=== PATIENT | female | born 1965 | race Caucasian/White ===

== ENCOUNTER 2025-02-26 04:08 | Emergency (ER) | payer OTHER, SELFPAY ==
[2025-02-26 04:14] VITALS: BP 183/116; PULSE 99; RESP 16; TEMP 36.1; O2SAT 96; BMI 39.9
[2025-02-26 04:23] VITALS: BP 162/96; PULSE 90; O2SAT 93
--- NOTE | 2025-02-26 04:52 | ED.GENADULT ---
HPI - General Adult General Chief complaint: Arrhythmia/Palpitations Stated complaint: heart palpitations Time Seen by Provider: 02/26/25 04:25 Source: patient Mode of arrival: ambulatory Limitations: no limitations History of Present Illness HPI narrative: 60-year-old female presents to the emergency department for evaluation of heart fluttering. Symptomatic for 12 hours at the time of arrival in the wee hours of the morning. Denies alcohol or caffeine ingestion. Denies a history of sleep apnea but does admit that she is being worked up for this. No fever, no signs of recent illness. No chest pain. Feels like her breath kind of catches but is not really short of breath. No cough. No nausea or vomiting, no GI changes. No injury or trauma. Not accompanied by dizziness, neurological changes or other systemic symptoms. Has not tried any treatments to help with symptoms. Has had a few of these flutters in the past but has never lasted this long. No prior workup for these in the past. No prior echo, stress test, Holter monitor, etc.. Does not have a history of thyroid disease. Does have a history of depression, uses bupropion 300 mg extended release once daily and a vaginal estrogen supplement. No history of bleeding or blood clotting disorders, DVT or PE. Symptoms are not worse on exertion. Nonsmoker. Denies drug allergies. ROS notable for the cardiac symptoms as above only, otherwise denies times 12 systems. Related Data Home Medications ?Medication ?Instructions ?Recorded ?Confirmed bupropion HCl 300 mg 24 hr tablet, 300 mg PO DAILY 02/26/25 02/26/25 extended release (Wellbutrin XL) estradiol 0.01% (0.1 mg/gram) 1 g vaginal DAILY 02/26/25 02/26/25 vaginal cream Allergies Allergy/AdvReac Type Severity Reaction Status Date / Time No Known Drug Allergies Allergy Verified 02/26/25 04:17 [facility] Social History Smoking Status: Never smoker Do you use any of these nicotine containing products: None How often do you have a drink containing alcohol: never AUDIT-C Alcohol total score: 0 Non-prescribed substance use: denies use Exam Const: Vital Signs, click to edit/add: Vital Signs - 24 hr 02/26/25 04:14 02/26/25 04:23 Temperature 97.0 F L Pulse Rate [Pulse Oximeter] 99 90 Respiratory Rate 16 Blood Pressure [Ri ght Upper Arm] 183/116 H 162/96 H Pulse Oximetry 96 93 Oxygen Delivery Me thod Room Air Room Air Documenting provider has reviewed patient's vital signs: yes Common normals: alert General appearance: cooperative HENMT: Common normals: normocephalic, moist oral mucous membranes and oropharynx normal Head and scalp: normocephalic Eye: Common normals: conjunctivae normal General eye: normal appearance of both eyes Conjunctiva: conjunctiva(e) normal Neck & C-Spine: Common normals: full ROM and no lymphadenopathy General: normal visual inspection Resp: Common normals: normal respiratory effort, no use of accessory muscles and clear to auscultation bilaterally Effort & inspection: able to speak in complete sentences Auscultation: clear to auscultation bilaterally Cardio: Common normals: regular rate, regular rhythm, S1 normal heart sound, S2 normal heart sound and no murmurs Rate: regular rate Rhythm: regular rhythm Heart sounds: S1 normal and S2 normal GI: Common normals: Normal to inspection, nondistended, normoactive bowel sounds present, soft to palpation, non-tender, no hepatosplenomegaly and no masses Palpation: soft and no hepatosplenomegaly Extremity: Common normals: normal to inspection, normal capillary refill and no pedal edema Neuro: Common normals: moves all extremities Sensorium/orientation: alert Speech: speech normal Motor exam: strength 5/5 throughout Psych: Attitude: engaged Activity/motor behavior: appropriate eye contact Attention/concentration: attention grossly intact Insight: insight good Judgement: judgment good Skin: Common normals: no rashes or lesions noted General skin exam: no rashes or lesions noted Course Course ED Course: 60-year-old female with feeling of heart fluttering. Rhythm strip reviewed in the room and she is having PVC every 10-15 seconds or so. EKG is performed and appears similar. Counseled patient that this is likely the etiology of her symptoms but sometimes there can be an underlying medical etiology such is electrolyte abnormality, dehydration, infection or thyroid disease. Recommended a basic cardiac workup, electrolytes and thyroid test today. Will keep on library monitor to see if there is a more dangerous underlying rhythm. I did show her on her Apple watch how to monitor her heart rate and rhythm. It is a newer generation 1 that has an arrhythmia detector. It does not show any signs of recent arrhythmia. Will await findings but anticipate discharge home with continued primary care workup. Reevaluation(s) Time of Reevaluation #1: 05:54 Reevaluation #1: Updated patient on findings, all labs are normal as expected. The PVCs have kind of faded out as well and she is no longer really symptomatic. Counseled patient on etiology, plan of care recommend conservative management reassurance. Follow-up with primary care doctor in 1-2 weeks for additional outpatient testing if still symptomatic. Alarm symptoms reviewed, written instructions provided Vital Signs Vital signs: Initial Vital Signs Temperature 97.0 F L 02/26/25 04:14 Temperature Source Temporal Artery Scan 02/26/25 04:14 Pulse Rate 99 02/26/25 04:14 Respiratory Rate 16 02/26/25 04:14 Blood Pressure 183/116 H 02/26/25 04:14 Blood Pressure Mean 138 H 02/26/25 04:14 Blood Pressure Position Sitting 02/26/25 04:14 Pulse Oximetry 96 02/26/25 04:14 Oxygen Delivery Method Room Air 02/26/25 04:14 Vital Signs Temperature 97.0 F L 02/26/25 04:14 Pulse Rate 99 02/26/25 04:14 Respiratory Rate 16 02/26/25 04:14 Blood Pressure 183/116 H 02/26/25 04:14 Pulse Oximetry 96 02/26/25 04:14 Oxygen Delivery Method Room Air 02/26/25 04:14 Temperature 97.0 F L 02/26/25 04:14 Pulse Rate 90 02/26/25 04:23 Respiratory Rate 16 02/26/25 04:14 Blood Pressure 162/96 H 02/26/25 04:23 Pulse Oximetry 93 02/26/25 04:23 Oxygen Delivery Method Room Air 02/26/25 04:23 Medical Decision Making Lab Data Lab results reviewed: Yes I reviewed the patient's lab results Lab results narrative: Labs reassuring. No abnormalities Labs: Lab Results 02/26/25 Range/Units 04:50 WBC 8.15 (4.50-11.00) K/uL RBC 5.24 H (4.00-5.20) m/uL Hgb 14.1 (12.0-16.0) gm/dL Hct 43.8 (33.0-51.0) % MCV 84 (80-100) fL MCH 27 (26-34) pg MCHC 32 (32-36) gm/dL RDW Coeff of Curt 13.4 (11.5-15.5) % Plt Count 279 (140-440) K/uL Neut % (Auto) 69.9 (42.0-72.0) % Lymph % (Auto) 20.5 (20-44) % Moody % (Auto) 6.5 (0.0-11.0) % Eos % (Auto) 2.0 (0.0-7.0) % Baso % (Auto) 0.6 (0.0-3.0) % Neut # (Auto) 5.70 (1.7-7.0) K/uL Lymph # (Auto) 1.67 (0.90-2.90) K/uL Moody # (Auto) 0.50 (0.00-0.90) K/UL Eos # (Auto) 0.16 (0.00-0.50) K/uL Baso # (Auto) 0.05 (0.00-0.30) K/uL Abs Immat Gran (auto) 0.04 (0.00-0.30) K/uL Imm/Tot Granulo (auto) 0.5 % Sodium 138 (135-149) mmol/L Potassium 3.8 (3.6-5.1) mmol/L Chloride 101 (96-114) mmol/L Carbon Dioxide 29 (20-32) mmol/L Anion Gap 8 (7-15) mEq/L BUN 17 (7-30) mg/dL Creatinine 0.9 (0.5-1.5) mg/dL Estimated Creat Clear 60.56 Estimated GFR 74 ml/min Glucose 127 H (60-115) mg/dL Calcium 9.1 (8.4-10.6) mg/dL Troponin I < 0.01 (0.01-0.04) ng/mL POC Troponin I High Sensi 5.2 (2.9-13.0) pg/mL C-Reactive Protein 1.0 (0.5-1.0) mg/dL NT-Pro-B Natriuret Pep < 20 (See Note) pg/mL TSH 3.740 (0.270-4.200) uIU/mL ECG Data Attestation: I personally reviewed and interpreted this ECG as follows: Prior ECG tracings: not available for review Interpretation: Sinus rhythm with a rate of 91. Few PVCs are present but otherwise EKG looks normal. Intervals and axis otherwise normal. No significant ST or T-wave abnormalities. Benign EKG Discharge Plan Discharge Clinical Impression: Symptomatic PVCs Instructions: Premature Ventricular Contractions (ED) Additional Instructions: As we discussed, the fluttering feelings that you're having are caused by PVCs, also known as premature ventricular contractions. These are very common. One in 6 people get them frequently. It is common that they will come in episodes that last for a few hours or even up to a few days. Some people do have thousands of these daily. It is not associated with underlying significant structural disease but can sometimes be correlated with caffeine or alcohol or obstructive sleep apnea. Sometimes periods of increased stress or poor sleep can bring these on. At this time, no treatment is needed but if you are very bothered by your symptoms, you on your primary care doctor can discuss medication like propranolol for them. This will lower your blood pressure but may cause some fatigue so it should be considered carefully. Additional workup like a Holter monitor, echo or other cardiac workup can be considered if you are having worsening of symptoms, dizziness, chest pain, true shortness of breath or worsening on exertion. Would recommend that you make a follow-up appointment with your primary care doctor in 1-2 weeks to discuss her symptoms and decide if further workup is warranted. Thankfully, there were no signs of electrolyte abnormality, thyroid disease or other abnormality here today. Sometimes Wellbutrin can make these worse but is not typically dangerous, continuing on it is usually best. Activity Level: No Restrictions Discharge Diet: Regular Prescriptions: No Action bupropion HCl [Wellbutrin XL] 300 mg tablet extended release 24 hr 300 mg PO DAILY estradiol 0.01 % (0.1 mg/gram) cream 1 g vaginal DAILY Rx Instructions: for 14 days Follow Up/Referrals: Provider,Not a Local [Primary Care Provider, Family Practice]
--- OUTSIDE RECORDS SUMMARY | 2025-02-26 04:57 | XMS_ITS | Clinical Summary ---
Author Organization [facility] Address [address] [place] [address] Care Team Providers Care Salesperson Flowers Name Role Phone Shaunna Thomas MD Primary Care Provider Allergies No known active allergies Medications MedicationSigDispense QuantityRefillsLast FilledStart DateEnd DateStatus COVID-19 antigen test (Flowflex COVID-19 Ag Home Test) kit Use as directed on packaging. 4 Kit 11/24/2023 2:01 PM CDT13Active albuterol HFA (ProAir HFA) 90 mcg/actuation inhaler Indications:Influenza-like illnessInhale 1-2 Puffs by mouth every 6 hours if needed for Shortness of Breath 1st choice. 1 Each 5Active cyclobenzaprine (FLEXERIL) 5 mg tablet Indications:Muscle spasmTake 1 Tablet (5 mg) by mouth 3 times daily if needed for Muscle Spasm. 90 Tablet 11:48 AM CDT5Active SUMAtriptan (IMITREX) 25 mg tablet Indications:Migraine without status migrainosus, not intractable, unspecified migraine typeTake 1 Tablet (25 mg) by mouth every 2 hours if needed for Migraine. 10 Tablet 5Active buPROPion (WELLBUTRIN XL) 300 mg Extended-Release tablet Indications:AnxietyTake 1 Tablet (300 mg) by mouth once daily. 90 Tablet 10:52 AM CST5Active ferrous sulfate 325 mg delayed release tablet Indications:RLS (restless legs syndrome),Iron deficiencyTake 1 Tablet (325 mg) by mouth once daily. Administer with water or juice on an empty stomach. Many take with orange juice to promote absorption. 30 Tablet 10:49 AM CST5Active meloxicam 15 mg tablet Indications:Left ankle pain, unspecified chronicity,Left tibialis posterior tendonitisTake 1 Tablet (15 mg) by mouth once daily. 30 Tablet 02/05/2025 10:49 AM CST506Active estradioL (VAGIFEM) 10 mcg tab vaginal tablet Indications:Atrophic vaginitisInsert 1 Tablet (10 mcg) into the vagina once daily for 14 days, THEN 1 Tablet (10 mcg) every Tuesday and . 28 Tablet 6:52 PM CDTExpired buPROPion (WELLBUTRIN XL) 150 mg Extended-Release tablet Indications:AnxietyTake 1 Tablet (150 mg) by mouth once daily in the morning. 90 Tablet 4:07 PM CDTDiscontinued(*Medication adjustment) Active Problems ProblemNoted DateDiagnosed WinhDgbgcyf25/10/7542Wndlzxseips17/10/2021 Qijlkaosdzirqrdulply20/11/2021creening for colon tjeldm2107/08/2020Health care arrqteclmow03/11/2021 Overview (02/13/2024): PAP- 02/2019 repeat 5 y doing with obgyn Mammogram- yearly Colonoscopy- 2016. 04/26/22, repeat in 5 y DEXA- 02/13/24 wnl repeat 5y Vaccinations-up to date Adhesive capsulitis of left fttezzjz40/29/5146Howjzxsbggl74/29/2019Vitamin D wxysuwrujt59/18/2017Migraine without status migrainosus, not intractable 09/14/2016Pap smear for cervical cancer zmbzyzeqd49/14/2006 Overview (06/13/2024): 12/03/2002 LSIL 11/2002 [place]: Cervicitis 05/11/2004 LSIL 04/13/2005 LSIL 04/13/2005 [place]: GAYLE I 09/2006 NIL/HPV Negative 04/2009 NIL 11/2011 NIL/HPV negative 02/2019 NIL/HPV Negative 04/2024 NIL/HPV negative Plan: HPV-based testing due 04/2029 Encounters DateTypeDepartmentCare JedsXcwyhsdykes84/23/2025 8:27 AM MAT MAN - 02/19/2025 11:59 PM CSTHospital Encounter [facility] Physical [facility] Doctor's Professional [facility] [address] [place] [address] Tahir Lara, Angel Botello, PT 02/19/20259012Nqdgix15/18/2025 8:20 AM MAT MAN - 02/14/2025 11:59 PM CSTHospital Encounter [facility] [address] [place] [address] Tahir Lara, Angel Botello, PT 02/14/20257326Njowhp53/11/2025 8:18 AM MAT MAN - 02/07/2025 11:59 PM CSTHospital Encounter [facility] Professional [facility] [address] [place] [address] Tahir Lara, Angel Botello, PT Left ankle pain, unspecified zswlyaspik47/11/4470Libwdp35/08/2025 3:30 PM MAT MAN Office Visit [facility] [address] [place] [address] Tahir aLra MD Ankle Pain/problem (Left ankle pain)02/04/2025 3:15 PM CSTAncillary Procedure [facility] [address] [place] [address] 02/04/20253689Nvodxc45/08/2025Results Follow-Up [facility] [address] [place] [phone] Louise Salcido NP 02/02/20255426Fcnspi07/05/2025 10:41 AM MAT MAN - 02/01/2025 11:[address] [facility] [address] [place] [address] Louise Salcido NP RLS (restless legs syndrome)02/01/20257492Qpxhpq58/03/2025 12:30 PM CSTOffice Visit [facility] [address] [place] [phone] Louise Salcido NP Sleep Consult (KRISTY)01/30/20258291Acabvm31/28/3243Rhljey00/17/2025Telephone [facility] [address] [place] [address] Consultants, Orthopedic Appointment Request (FOOT/ANKLE)12/22/2024Refill [facility] [address] [facility] [address] [place] [address] Shaunna Thomas MD Refill Request (Imitrex)from Last 3 Months Immunizations ImmunizationAdministration DatesNext DueCOVID-19 vaccine (XoomsysNTHealthify 30mcg/0.3mL) PF, MDV03/26/2020,03/05/2020Hepatitis B, Fentgcverhy32/03/2008, 10/26/2006,09/19/2006INFLUENZA, IIV3 PF (AGE >= 6 MO)12/12/2023Influenza A (H1N1), Inactivated (Age >=3 Years)12/20/2008Influenza Virus, Unspecified 12/19/2013,12/13/2012,12/17/2011,12/25/2010,02/05/2009,01/11/2008Influenza, IIV3 (Age >=3 years)11/12/2018Influenza, IGZ799/,12/09/2021,12/11/2020, 12/04/2019,12/05/2018Influenza, split (incl. purified surface antigen)12/29/2006 MMR05/05/19719482Atsyzga80/05/1967TD, PRMLWUSCFJS94/23/2007Td (Age >=7 Years) 09/19/2006Tdap04/05/2022,12/25/2010Zoster (Shingrix-RZV, recombinant)07/25/2021, 07/08/2020 Family History Medical HistoryRelationNameCommentsCancerFatherbladder. Knhi-42Ewgihi-iteydilw FatherDiabetesFatherHeart DiseaseFatherHyperlipidemiaFatherHypertensionFather Lung cancerFatherHeart DiseaseMaternal GrandmotherCancerMotherskin cancer basal cell car.Rheum arthritisMotherHeart DiseasePaternal GrandmotherHeart defect Paternal GrandmotherCancer-colonPaternal Hwioc50-9 71-2AsthmaSister Cancer-breastNo Family HistoryCancer-ovarianNo Family HistoryRelationNameStatus CommentsFatherDeceasedMaternal GrandmotherMotherPaternal GrandmotherPaternal UncleSister Social History Tobacco UseTypesPacks/DayYears UsedDateSmoking Tobacco: NeverSmokeless Tobacco: Never Comments: Alcohol UseStandard Drinks/WeekCommentsYes1 (1 standard drink = 0.6 oz pure alcohol)once monthlyPHQ-2AnswerDate RecordedPHQ-2 TOTAL IIMEM127Social ConnectionsAnswerDate RecordedDo you often feel lonely or isolated from those around you?Financial Resource StrainAnswerDate RecordedDifficulty of Paying Living Unqgkgnl530ifficulty of Paying Living ExpensesNot on file 07/17/2023Food InsecurityAnswerDate RecordedDo you worry your food will run out before you are able to buy more?Transportation NeedsAnswerDate RecordedDoes lack of transportation keep you from medical appointments?1 07/17/2023oes lack of transportation keep you from work, meetings or getting things that you need?Housing StabilityAnswerDate RecordedWhat is your housing situation today?UtilitiesAnswerDate RecordedDo you have trouble paying for utilities (for example, heat, electricity, water, phone)?1 07/17/2023EducationAnswerDate RecordedWhat is the highest level of school you have completed or the highest degree you have received?Bachelor's degree (e.g., BA, AB, BS)3CommentsNoSex and Gender InformationValueDate RecordedSex Assigned at LmszbXpsjuk03/10/2021 11:03 PM CDTLegal SexFemale 03/13/2012 6:18 AM CSTGender WryvbbkuXjtoby53/10/2021 11:03 PM CDTSexual CwgyemmgnteCztgwmhu14/10/2021 11:03 PM CDTOccupationIndustryJob Start DateJob End DateResearch nurseNot on fileNot on fileNot on file Obstetrics History GravidaParaTermPretermABIABSABEctopicMultipleLivingLive [id number] OutcomeGATotal LaborLabor/2nd/8qeVrbkeuGnrHugkXxocWPXIdtW5A4UydrNvzrOQK Last Filed Vital Signs Vital SignReadingTime TakenCommentsBlood Arutbxbw832/9009 9:16 AM CDT Wynhu267411/07/2024 9:16 AM LKAIxzxelsqyak38 ??C (100.4 ??F)03/08/2024 9:11 AM MAT MAN Respiratory Ouiw8710 7:49 PM CDTOxygen Iakiorzbft20%11/07/2024 9:16 AM CDTInhaled Oxygen Concentration--Nprzku289.6 kg (241 lb 9.6 oz)01/30/2025 12:36 PM DGGXdxdsl784 cm (5' 4.57)01/30/2025 12:36 PM CSTBody Mass Index40.74 01/30/2025 12:36 PM MAT MAN Plan of Treatment DateTypeDepartmentCare Team (Latest Contact Info)Xbcpowjkxvc58/08/2026 12:45 PM CSTAppointment [facility] Doctor's Professional Building [address] [facility] [address] [place] [address] Angel Pantoja P, PT [address] [place] [address] 03/08/2025 4:30 PM CSTNurse/Clinic Staff Only [facility] [address] [place] [phone] 03/14/2025 12:45 PM CSTAppointment [facility] Doctor's Professional [facility] [address] [place] [address] Angel Pantoja, PT [address] [place] [address] 03/21/2025 12:45 PM CSTAppointment [facility] Doctor's Professional [facility] [address] [facility] [address] [place] [address] Angel Pantoja, PT [address] [facility] [address] [place] [address] 05/17/2025 12:55 PM CDTOffice Visit [facility] [address] [place] [phone] Louise Salcido, FAMILY PRACTITIONER [address] [facility] [address] [place] [address] Health MaintenanceDue DateLast DoneCommentsHIV for age 15-6501/31/1981 Pneumococcal series for age 50+ (1 of 1 - PCV)02/01/2016RSV vaccine for adults or (1 - Risk 50-74 years 1-dose series)02/01/2016Influenza Vaccine (#1)51, 12/16/2022, 12/09/2021, Additional history exists Mammogram for age 40-750, 10/12/2023, 10/05/2022, Additional history existsDepression screening for age 12+/11/2024, 05/24/2024, 12/05/2023, Additional history existsBMI (ht and wt on same day) for age 18+ /04/2024, 11/07/2024, 03/14/2019, Additional history exists Colonoscopy through age [address]5004/26/56122104/26/2022, 09/09/2015, 09/09/2015Pap test for age 21-/, 05/24/2024, 03/14/2019, Additional history existsLipids for age 45-, 04/05/2022, 07/08/2020, Additional history existsTetanus /07/2022, 12/25/2010, 09/19/2006, Additional history existsHepatitis B series for 19+Completed 03/02/2007, 10/26/2006, 09/19/2006Zoster (shingles) series for age 50+Completed 07/25/2021, 07/08/2020Hepatitis C screening for age 18-15Eypyhatsl07/22/2024 COVID-19 vaccine rblbouEkpimwvxu59/13/2025, 12/12/2023, 12/31/2022, Additional history exists Procedures Procedure NamePriorityDate/TimeAssociated DiagnosisCommentsXR ANKLE 3 VIEWS LEFT Indbiij8202/04/2025 3:16 PM MAT MAN Left ankle pain, unspecified chronicity IRON PLUS IRON BINDING UXXKjstr88/05/2025 10:48 AM MAT MAN RLS (restless legs syndrome) OHLLMAODFeurh68/05/2025 10:48 AM MAT MAN RLS (restless legs syndrome) LIPID SGMXDFihcavq12/10/2025 9:56 AM CDT Routine general medical examination at a health care facility XR MAMMO MICHAEL BILAT FUTPGDXrmpmpg33/08/2025 3:31 PM CDT Visit for screening mammogram RETORT LOAD EXPEDITER THIN PREP PAP SCREEN VLWUYDQsrkmae96/27/2025 2:30 PM CDT Screening for cervical cancer ANTI FIXZkabfdn43/22/2024 8:39 AM CDT Arthralgia, unspecified joint SCAN-BXRGULMFCGI93/27/2023 11:00 AM MAT MAN from Last 3 Months or Most Recently Relevant to Health Maintenance Results * XR ANKLE 3 VIEWS LEFT (02/04/2025 3:16 PM MAT MAN)Anatomical RegionLaterality ModalityANKLES, ANKLE LDigital RadiographySpecimen (Source)Anatomical Location / LateralityCollection Method / VolumeCollection TimeReceived Time02/04/2025 3:16 PM MAT MAN Impressions 02/06/2025 10:46 AM MAT MAN Normal joint spaces and alignment. No acute displaced left ankle fracture. Mild medial ankle soft tissue swelling. Intact ankle mortise and distal syndesmosis. Small heel spur. SYSTEM ID: [id number] Narrative 02/06/2025 10:46 AM MAT MAN For Patients: As a result of the Cures Act, medical imaging exams and procedure reports are released immediately into your electronic medical record. You may view this report before your referring provider. If you have questions, please contact your health care provider. EXAM: XR ANKLE 3 VIEWS LEFT LOCATION: [facility] DATE: 02/04/2025 INDICATION: Left ankle pain, unspecified chronicity COMPARISON: None.. Procedure Note Ramo Hackett MD - 02/06/2025 For Patients: As a result of the Cures Act, medical imagingexams and procedure reports are released immediately into your electronicmedical record. You may view this report before your referring provider.If you have questions, please contact your health care provider. EXAM: XR ANKLE 3 VIEWS LEFT LOCATION: [facility] DATE: 02/04/2025 INDICATION: Left ankle pain, unspecified chronicity COMPARISON: None.. IMPRESSION: Normal joint spaces and alignment. No acute displaced left ankle fracture.Mild medial ankle soft tissue swelling. Intact ankle mortise and distalsyndesmosis. Small heel spur. SYSTEM ID: [id number] Authorizing ProviderResult TypeResult StatusTahir Lara MDGENERAL IMAGING Final Result * IRON PLUS IRON BINDING CAP (02/01/2025 10:48 AM MAT MAN)ComponentValueRef Range Test MethodAnalysis TimePerformed AtPathologist TsitsrnnqWXPN2310 - 145 ug/dL 02/01/2025 11:16 AM [facility] LABORATORYUIBC (UNSATURATED)754764 - 347 ug/dL02/01/2025 11:16 AM [facility] LABORATORYIRON BINDING OVHTXUWY571535 - 400 ug/dL02/01/2025 11:16 AM [facility] IRON,% VYLMMQNVYR1301 - 50 %02/01/2025 11:16 AM [facility] Specimen (Source)Anatomical Location / LateralityCollection Method / Volume Collection TimeReceived TimeBloodBLOOD SPECIMEN / UnknownVenipuncture / Jytfqin7402/01/2025 10:48 AM CST02/01/2025 10:48 AM MAT MAN Narrative Authorizing ProviderResult TypeResult StatusLouise Salcido NPCHEMISTRYFinal ResultPerforming OrganizationAddressCity/State/ZIP CodePhone Number [facility] SENDOUT INTERNAL ZIP [phone] [place] [address] * FERRITIN (02/01/2025 10:48 AM MAT MAN)ComponentValueRef RangeTest MethodAnalysis TimePerformed AtPathologist RttjuvnaoQMFZIVPW61.915.0 - 150.0 ng/mL02/01/2025 2:51 PM CSTWAYNE GENERAL H[facility]PITALCENTRAL LABORATORYSpecimen (Source) Anatomical Location / LateralityCollection Method / VolumeCollection Time Received TimeBloodBLOOD SPECIMEN / UnknownVenipuncture / Euwsznq4402/01/2025 10:48 AM CST02/01/2025 10:48 AM MAT MAN Narrative Authorizing ProviderResult TypeResult StatusLouise Salcido NPCHEMISTRYFinal ResultPerforming OrganizationAddressCity/State/ZIP CodePhone Number [facility] [address] [place] [address], * (ABNORMAL) LIPID PANEL (11/07/2024 9:56 AM CDT)ComponentValueRef RangeTest MethodAnalysis TimePerformed AtPathologist SignatureCHOLESTEROL, VFLPE397(H) <200 mg/dL11/08/2024 3:34 AM CDTQUEST FKLDWHMFBSWDKTWSDGBJBGNG275(H)<150 mg/dL 11/08/2024 3:34 AM CDTQUEST DIAGNOSTICSHDL RKVROHZPOJF38(L)> OR = 50 mg/dL 11/08/2024 3:34 AM CDTQUEST DIAGNOSTICSNON HDL GQYHRRBXRDM095(H)<130 mg/dL (calc)11/08/2024 3:34 AM CDTQUEST DIAGNOSTICSComment: For patients with diabetes plus 1 major ASCVD risk factor, treating to a non-HDL-C goal of <100 mg/dL (LDL-C of <70 mg/dL) is considered a therapeutic option. CHOL/HDLC RATIO4.9<5.0 (calc)11/08/2024 3:34 AM CDTQUEST DIAGNOSTICS LDL-OAKTTWVATVP655(H)mg/dL (calc)11/08/2024 3:34 AM CDTQUEST DIAGNOSTICSComment: Reference range: <100 Desirable range <100 mg/dL for primary prevention; <70 mg/dL for patients with CHD or diabetic patients with > or = 2 CHD risk factors. LDL-C is now calculated using the Carole calculation, which is a validated novel method providing better accuracy than the Friedewald equation in the estimation of LDL-C. Joaquin SS et al. REBECCA. 2013;310(19): 9956-4055 (http://education.Pixelapse.ChessPark/faq/CIZ679) Specimen (Source)Anatomical Location / LateralityCollection Method / Volume Collection TimeReceived TimeBloodBLOOD SPECIMEN / UnknownQuest Collect / Unknown 11/07/2024 9:56 AM CDT11/07/2024 9:56 AM CDT Narrative Authorizing ProviderResult TypeResult StatusOxana Pavlovna Haflund MDCHEMISTRY Final ResultPerforming OrganizationAddressCity/State/ZIP CodePhone Number [employer] [facility] [address] [place] [address], [place] [phone] * XR MAMMO MICHAEL BILAT SCREEN (10/05/2024 3:31 PM CDT)Anatomical RegionLaterality ModalityBREASTS, Breast Left, Breast RightBilateralMammographySpecimen (Source)Anatomical Location / LateralityCollection Method / VolumeCollection TimeReceived Time Impressions 10/08/2024 4:08 PM CDT There is no radiographic evidence for malignancy. Recommend annual mammograms. MAMMOGRAM ASSESSMENT: ??ACR 1 Negative PATIENTS: You will also receive a letter with your examination results in an easy to read format. ??If you have questions about your results, please contact your referring provider. Narrative 10/08/2024 4:08 PM CDT For Patients: As a result of the Century Cures Act, medical imaging exams and procedure reports are released immediately into your electronic medical record. You may view this report before your referring provider. If you have questions, please contact your health care provider. XR MAMMO MICHAEL BILAT SCREEN [[id number]] CLINICAL HISTORY: ??This is an asymptomatic 59 y.o. patient. INDICATION FOR EXAM: Mammogram Screening. TECHNIQUE: CC and MLO views were obtained. ??This study was evaluated with the assistance of Computer-Aided Detection. Breast Tomosynthesis was used in interpretation. COMPARISON FILM: Yes 10/12/23 [facility] 10/05/22 [facility] FINDINGS: ??There are scattered areas of fibroglandular density. There are no dominant masses, suspicious micro calcifications or areas of architectural distortion. Authorizing ProviderResult TypeResult StatusOxana Deepika Haflund MDMAMMOFinal Result * RETORT LOAD EXPEDITER THIN PREP PAP SCREEN IMAGED (05/24/2024 2:30 PM CDT)ComponentValueRef RangeTest MethodAnalysis TimePerformed AtPathologist SignatureCase Report Gynecologic Cytology Report ? Case: [id number] ? Authorizing Provider: ??Tommie Bloom ? Collected: ? 05/24/2024 1430 ? MD Carroll ? Ordering Location: ? [facility] Received: ?05/24/2024 1545 ? First Screen: ?Valeri, Omid ? Pathologist: ? Leonela Ellis MD ? Specimen: ?RETORT LOAD EXPEDITER ThinPrep Vial Screening, Cervical ? 06/13/2024 3:39 PM [facility] INTERPRETATION/RESULTNEGATIVE FOR INTRAEPITHELIAL LESION OR MALIGNANCY (NIL) (none)06/13/2024 3:39 PM [facility] at 1539 CDTOTHER NON-NEOPLASTIC FINDING(S)Reactive cellular changes associated with inflammation/kwilrp0306/13/2024 3:39 PM [facility]-CENTRAL LABORATORYSPECIMEN ADEQUACYSatisfactory for evaluation Endocervical component fugwvnn0406/13/2024 3:39 PM [facility]- CENTRAL LABORATORYHPV REQUESTHPV and PAP06/13/2024 3:39 PM CDTURN[facility] LABORATORYDate of QEWQvrifqhpejnzvn17/16/2025 3:39 PM CDT [facility]-CENTRAL LABORATORYLast Pap Date03/14/2003/ 3:39 PM [facility] LABORATORYLast Pap UpgegeNAF60/16/2025 3:39 PM [facility] LABORATORYAbnormal Pap or [place] Bx in last 5 znihvDz1306/13/2024 3:39 PM [facility] Menstrual TdqunwAtodehnikjjbym57/16/2025 3:39 PM [facility] LABORATORYColp Bx Done PdaacCx9006/13/2024 3:39 PM [facility] LABORATORYAdditional InformationNone given06/13/2024 3:39 PM [facility] LABORATORYComment: Cytology is screened at [facility] - [address], [place] [address] and [facility] - [address] [place] [address] [facility] - [address] [place] [address] Interpreted at [facility] - [address], [place] [address] Automated LnfgweHbdfgxsogt56/16/2025 3:39 PM [facility] LABORATORYComment:Specimen processed successfully by automated college or university registrar device, ThinPrep Imaging System, [employer]ANCILLARY TESTING GYNHPV Ordered, Please see separate kchhrt1406/13/2024 3:39 PM [facility] LABORATORYNoteThe pap test is a screening technique, not a diagnostic procedure. It is used primarily to screen for squamous cancers and precursor lesions. Published studies have shown that it is subject to both false negative and false positive results. The pap test should not be used as the sole means to diagnose or exclude pre-malignant and malignant lesions.06/13/2024 3:39 PM [facility] LABORATORYSpecimen (Source)Anatomical Location / LateralityCollection Method / VolumeCollection TimeReceived TimeOther (Cervical) Non-Blood / Czjlihc1005/24/2024 2:30 PM CDT05/24/2024 3:45 PM CDT Narrative Authorizing ProviderResult TypeResult StatusTommie Bloom MD PATHOLOGY/CYTOLOGYFinal ResultPerforming OrganizationAddressty/State/ZIP Code Phone Number [facility] [address] [place] [address], * ANTI HCV (07/20/2023 8:39 AM CDT)ComponentValueRef RangeTest MethodAnalysis TimePerformed AtPathologist SignatureHEPATITIS C ANTIBODYNon-Reactive Non-Rjrjjert13/22/2024 2:06 PM CDTALNORTH CAROLINA [facility]TY [facility]ITALCENTR[facility] LAB[facility]ATORY Comment:Please note, per www.CDC.gov: If a patient is known to be at high risk of HCV infection, or is symptomatic, and the physician's suspicion of HCV infection is high, HCV RNA testing is often employed and is of diagnostic value, even after an initial negative anti-HCV test result.Specimen (Source) Anatomical Location / LateralityCollection Method / VolumeCollection Time Received TimeBloodBLOOD SPECIMEN / UnknownVenipuncture / Eagktfq5107/20/2023 8:39 AM CDT07/20/2023 8:40 AM CDT Narrative Authorizing ProviderResult TypeResult StatusShaunna Thomas MDSEND OUTS Final ResultPerforming OrganizationAddressty/State/[facility] CodePhone Number [facility] [address] [place] [address], * SCAN-COLONOSCOPY (04/26/2022 11:00 AM MAT MAN) Narrative Procedure Note Thalia Carvalho MD - 04/26/2022 10:08 AM CST [facility], [address], [facility] [address] [address] Patient Name: Nova Bailey Gender: Female Exam Date: 04/26/2022 Visit Number: [id number] Age: 57 Years Date of : 1965 Attending MD: Thalia Carvalho MD Medical Record#: [id number] Procedure: Colonoscopy Indications: Colorectal cancer screening Diarrhea Referring MD: Shaunna Thomas MD Primary MD: Shaunna Thomas MD Medications: Admitting Medications: 0.9% Normal Saline at TKO Intra Procedure Medications: Patient received monitored anesthesia care. Complications: No immediate complications Procedure: An examination of the heart and lungs was performed and found to be within acceptable limits. . The patient was therefore deemed a reasonablecandidate for endoscopy and sedation. The risks and benefits of the procedure were explained to the patient.After obtaining informed consent, the patient received monitoredanesthesia care and I passed the scope without difficulty via the rectum to the ileum. The appendiceal orificeand ic valve were identified. The scope was retroflexed during theexamination The quality of the prep was good (Jai/Gat Split). This was a complete examination throughout the entire colon. Findings: Normal finding. Location - ileum. Normal finding. Location - entire colon. Biopsy taken. Maneuver - coldbiopsy forceps. Polyp location: rectum. Quantity: 2. Size: 1 mm. Polyp shape:sessile. Maneuver: polypectomy was performed with a cold biopsy forceps. Removal: complete. Retrieval: complete. Bleeding: none. Polyp location: sigmoid. Quantity: 1. Size: 1 mm. Polyp shape: sessile. Maneuver: polypectomy was performed with a cold biopsy forceps . Removal: complete. Retrieval: complete. Bleeding: none. Diverticulosis. Location: - descending colon - sigmoid. Noinflammation present. Impression: Colorectal polyps Diarrhea, unspecified type Preliminary Plan: Recommendation Comments: - Will call you if biopsies are positive formicroscopic colitis. - Follow up in clinic for diarrhea. Pathology Results: A: RECTUM, POLYPS: 1. Tubular adenoma (1) and normal colonic mucosa (clinically, 2polyps) 2. Negative for high grade dysplasia 3. Per the colonoscopy report: a. Polyp sizes: 1 mm b. Resection: Complete c. Retrieval: Complete B: COLON, RANDOM, BIOPSY: 1. Normal colonic mucosa 2. Negative for microscopic, active, and chronic colitis C: COLON, SIGMOID, POLYP: 1. Tubular adenoma 2. Negative for high grade dysplasia 3. Per the colonoscopy report: a. Polyp size: 1 mm b. Resection: Complete c. Retrieval: Complete MICROSCOPIC A: Performed B: Performed C: Performed SPECIAL STAINING/DEEPER A: Deeper Electronically signed by: Blake Zhang MD Interpreted at [facility], [address] [place] Orders Follow-up visit/Referral: Order Comments follow-up visit with any provider within 6 Weeks or by 06/07/2022 Final Plan: Repeat colonoscopy in 5 years. We will attempt to contact you at appropriate intervals via [place] mail. Wemay not be able to find you or contact you at that time, therefore youshould know that the responsibility for following our recommendation restswith you. If you don't hear from us at the time your procedure is due,please contact our office to schedule an appointment. If your contactinformation should change, please contact our office so that we can updateyour record. _Electronically signed by: Thalia Carvalho MD 04/26/2022 cc: Shaunna Thomas MD cc: Shaunna Thomas MD Authorizing ProviderResult TypeResult StatusErica Cat Carvalho MDOTHERFinal Result from Last 3 Months or Most Recently Relevant to Health Maintenance Insurance Care Teams Team MemberRelationshipSpecialtyStart DateEnd Date Shaunna Thomas MD [id number] [place] [id number] PCP - GeneralInternal Medicine09/13/16
[2025-02-26 05:03] LABS: Hematocrit* 43.8 % (33.0-51.0); Hemoglobin* 14.1 gm/dL (12.0-16.0); Immature Granulocytes Abs Auto 0.04 K/uL (0.00-0.30); Immature Granulocytes Pct Auto 0.5 %; Lymphocytes Absolute Auto 1.67 K/uL (0.90-2.90); Mean Corpuscular HGB Conc 32 gm/dL (32-36); Mean Corpuscular Hemoglobin 27 pg (26-34); Mean Corpuscular Volume 84 fL (80-100); RDW Coefficient of Variation % 13.4 % (11.5-15.5); Red Blood Count* 5.24 m/uL (4.00-5.20); White Blood Count* 8.15 K/uL (4.50-11.00)
[2025-02-26 05:04] LABS: Slide Review Reflex No
[2025-02-26 05:09] LABS: Chloride* 101 mmol/L (96-114); Potassium* 3.8 mmol/L (3.6-5.1); Sodium* 138 mmol/L (135-149)
[2025-02-26 05:13] LABS: Anion Gap 8 mEq/L (7-15); Blood Urea Nitrogen* 17 mg/dL (7-30); Calcium* 9.1 mg/dL (8.4-10.6); Carbon Dioxide* 29 mmol/L (20-32); Creatinine* 0.9 mg/dL (0.5-1.5); Est. Creatinine Clearance* 60.56; Estimated Glomerular Filt Rate 74 ml/min; Glucose* 127 mg/dL (60-115)
[2025-02-26 05:27] LABS: NT Pro B Type NatriureticPept* < 20 pg/mL (See Note)
[2025-02-26 05:41] VITALS: PULSE 76; O2SAT 92
[2025-02-26 05:42] VITALS: BP 148/89; PULSE 80; RESP 12; O2SAT 94
[2025-02-26 05:45] VITALS: PULSE 76; O2SAT 93
[2025-02-26 05:45] LABS: TSH With Reflex to FT4* 3.740 uIU/mL (0.270-4.200)
== END 2025-02-26 06:04 | disposition home or self-care (01) ==
PROVIDERS: Emergency Provider Family Medicine
DX: I49.3 Ventricular premature depolarization (principal)
CPT/HCPCS: 36415; 80048; 83880; 84443; 84484; 85025; 86140; 99284